=== PATIENT | female | born 1970 | race American Indian/Alaskan Native ===

== ENCOUNTER 2017-06-27 13:48 | Emergency (ER) | payer BC ==
[2017-06-27 13:48] VITALS: BMI 34.2
[2017-06-27 14:20] VITALS: O2SAT 98
[2017-06-27 14:56] LABS: URINE BACTERIA RARE (<OCC); URINE BILIRUBIN NEGATIVE (NEGATIVE); URINE BLOOD NEGATIVE (NEGATIVE); URINE COLOR Colorless (YELLOW); URINE GLUCOSE (UA) NORMAL (Normal); URINE KETONE NEGATIVE (NEGATIVE); URINE LEUKOCYTE ESTERASE NEG Leu/uL (Negative); URINE PROTEIN NEGATIVE (NEGATIVE); URINE UROBILINOGEN NORMAL mg/dL (0.2-1.0)
--- NOTE | 2017-06-27 15:30 | C.PDOC ---
History Of Present Illness 46 y/o female with no pmhx, c/o dizziness, lightheadedness, headache, and lower abdominal pain for 3 days. Symptoms self-resolved but returned yesterday. Abdominal pain is 8/10 and "feels like a bottom less pit". Headache is 6/10 and is localized at the left occipital-parietal area. Patient took Tylenol with no relief. Reports blurred vision, nausea, and vomiting. Denies LOC, fever, or chills. No chest pain, SOB, or lower extremity pain or swelling. Time Seen by Provider: 06/27/17 14:36 Chief Complaint (Nursing): Dizziness/Lightheaded History Per: Patient History/Exam Limitations: no limitations Onset/Duration Of Symptoms: Days (3) Current Symptoms Are (Timing): Still Present Severity: Moderate ("Feels like a bottomless pit") Pain Scale Rating Of: 8 Location Of Pain/Discomfort: Other (Lower abdomen) Radiation Of Pain To:: None Quality Of Discomfort: "Pain" Associated Symptoms: Nausea, Vomiting. denies: Fever, Chills Recent travel outside of the [place]: No Additional History Per: Patient Past Medical History Reviewed: Historical Data, Nursing Documentation, Vital Signs Vital Signs: Last Vital Signs Temp 98.2 F 06/27/17 14:07 Pulse 72 06/27/17 14:07 Resp 20 06/27/17 14:07 BP 148/105 H 06/27/17 14:07 Pulse Ox 98 06/27/17 15:41 - Medical History PMH: Anemia Denies: Chronic Kidney Disease - [facility] Procedures EXCISION OF LEFT OVARY, OPEN APPROACH (12/10/15) EXCISION OF UTERUS, OPEN APPROACH (12/10/15) Family History: States: Unknown Family Hx - Social History Hx Tobacco Use: No Hx Alcohol Use: No Hx Substance Use: No - Immunization History Hx Tetanus Toxoid Vaccination: No Hx Influenza Vaccination: No Hx Pneumococcal Vaccination: Yes Review Of Systems Except As Marked, All Systems Reviewed And Found Negative. Constitutional: Negative for: Fever, Chills Eyes: Positive for: Vision Change (Blurred vision) Cardiovascular: Positive for: Light Headedness. Negative for: Chest Pain, Palpitations Respiratory: Negative for: Shortness of Breath Gastrointestinal: Positive for: Nausea, Vomiting, Abdominal Pain Musculoskeletal: Negative for: Leg Pain, Foot Pain Neurological: Positive for: Headache, Dizziness. Negative for: Other (LOC) Physical Exam - Physical Exam Appears: Non-toxic, No Acute Distress Skin: Warm, Dry Head: Atraumatic, Normacephalic Eye(s): bilateral: Normal Inspection, PERRL, EOMI Oral Mucosa: Moist Chest: Symmetrical Cardiovascular: Rhythm Regular, No Murmur Respiratory: Normal Breath Sounds, No Rales, No Rhonchi, No Wheezing Gastrointestinal/Abdominal: Soft, Tenderness (LUQ and bilateral lower abdomen), No Guarding, No Rebound Neurological/Psych: Oriented x3 ED Course And Treatment O2 Sat by Pulse Oximetry: 98 (RA) Pulse Ox Interpretation: Normal Medical Decision Making Medical Decision Making: Plans: * Motrin * Tylenol * IV fluids * UA * Serology Flu negative, feeling better Disposition Counseled Patient/Family Regarding: Need For Followup, Rx Given - Disposition Disposition: HOME/ ROUTINE Disposition Time: 16:30 Condition: STABLE Instructions: Viral Syndrome (ED) Forms: [facility] (Italian), General Discharge Instructions - POA Present On Arrival: None - Clinical Impression Clinical Impression: Viral syndrome - Scribe Statement The provider has reviewed the documentation as recorded by the Scribe Benigno moya All medical record entries made by the Scribe were at my direction and personally dictated by me. I have reviewed the chart and agree that the record accurately reflects my personal performance of the history, physical exam, medical decision making, and the department course for this patient. I have also personally directed, reviewed, and agree with the discharge instructions and disposition.
[2017-06-27 17:38] VITALS: BP 148/95; PULSE 66; RESP 18; TEMP 97.9
== END 2017-06-27 17:56 | disposition home or self-care (01) ==
LOC: C.ER 13:48
DX: B34.9 Viral infection, unspecified (principal)

== ENCOUNTER 2017-11-18 13:46 | Emergency (ER) | payer BC ==
[2017-11-18 13:46] VITALS: BMI 34.2
[2017-11-18] MEDS ORDERED: DiphenhydrAMINE 50 mg/ml Inj IVP STA (14:09)
--- NOTE | 2017-11-18 14:11 | C.PDOC ---
History Of Present Illness 46 yo female, presents with katz. as per pt worsening over last week, "feels different than her typical katz". no fevers, cough, n/v/d, cp, sob, neck pain, blurry vision. Time Seen by Provider: 11/18/17 13:54 Chief Complaint (Nursing): Headache Past Medical History Reviewed: Historical Data, Nursing Documentation, Vital Signs Vital Signs: Last Vital Signs Temp 98.1 F 11/18/17 13:49 Pulse 70 11/18/17 15:43 Resp 18 11/18/17 15:43 BP 132/85 11/18/17 15:43 Pulse Ox 79 L 11/18/17 16:04 - Medical History PMH: Anemia Denies: Chronic Kidney Disease - [facility] Procedures EXCISION OF LEFT OVARY, OPEN APPROACH (12/10/15) EXCISION OF UTERUS, OPEN APPROACH (12/10/15) Family History: States: Unknown Family Hx - Social History Hx Tobacco Use: No Hx Alcohol Use: No Hx Substance Use: No - Immunization History Hx Tetanus Toxoid Vaccination: No Hx Influenza Vaccination: No (not up to date) Hx Pneumococcal Vaccination: Yes Review Of Systems Except As Marked, All Systems Reviewed And Found Negative. Neurological: Positive for: Headache Physical Exam - Physical Exam Appears: Well, No Acute Distress Skin: Normal Color, Warm, Dry Eye(s): bilateral: Normal Inspection, PERRL, EOMI Nose: Normal Throat: Normal Neck: Normal Cardiovascular: Rhythm Regular Respiratory: Normal Breath Sounds Gastrointestinal/Abdominal: Normal Exam Back: Normal Inspection Extremity: Normal ROM Neurological/Psych: Oriented x3, Normal Speech, Normal Cognition, Normal Cranial Nerves, No Cerebellar Signs, Normal Motor, Normal Sensation ED Course And Treatment - Laboratory Results Result Diagrams: 11/18/17 14:40 11/18/17 14:40 O2 Sat by Pulse Oximetry: 79 Medical Decision Making Medical Decision Making: katz ro metabolic, intracranial etiology neck supple no menginmus, neuro intact. no thunderclap features 400: pt reassesed pain improving. labs head ct neg. pt declines futher obs, medication,s tates she wishes to go home. neuro intac.t Disposition - Disposition Referrals: [facility] [Outside] [facility] [Outside] [facility] [Outside] Chris Merino MD [Staff Provider] - Disposition: HOME/ ROUTINE Disposition Time: 16:02 Condition: STABLE Additional Instructions: follow up with specialist. return to er with worsening symptoms or concerns. Prescriptions: Acetaminophen/Butalbital/Caf [Fioricet] 1 tab PO Q8 PRN #10 tab PRN Reason: Headache Instructions: Headache, Adult (DC) Forms: [facility] (Hebrew) - Clinical Impression Clinical Impression: Headache
[2017-11-18] MEDS ORDERED: DiphenhydrAMINE 50 mg/ml Inj ONE (14:19)
[2017-11-18 14:44] LABS: BASO # 0.1 K/uL (0.0-0.2); BASO % 0.8 % (0.0-2.0); EOS # 0.4 K/uL (0.0-0.7); HEMOGLOBIN 12.1 g/dL (11.0-16.0); LYMPH # 1.8 K/uL (1.0-4.3); LYMPH % 29.2 % (20.0-40.0); MEAN CELL VOLUME 84.2 fL (81.0-99.0); MEAN CORPUSCULAR HEMOGLOBIN 28.3 pg (27.0-31.0); MEAN CORPUSCULAR HGB CONC 33.6 g/dL (33.0-37.0); MEAN PLATELET VOLUME 8.2 fL (7.2-11.7); MONO % 15.5 % (0.0-10.0); NEUT # 3.1 K/uL (1.8-7.0); NEUT % 48.5 % (50.0-75.0); NRBC % 0.2 % (0.0-2.0); RBC 4.28 Mil/uL (3.80-5.20); RED CELL DISTRIBUTION WIDTH 14.3 % (11.5-14.5); WHITE BLOOD COUNT 6.3 K/uL (4.8-10.8)
[2017-11-18 14:48] LABS: HCG,QUALITATIVE URINE NEGATIVE (NEGATIVE)
[2017-11-18 14:52] LABS: SQUAMOUS EPITHIAL 3 /hpf (0-5); URINE BACTERIA RARE (<OCC); URINE BILIRUBIN NEGATIVE (NEGATIVE); URINE BLOOD NEGATIVE (NEGATIVE); URINE CLARITY Clear (Clear); URINE COLOR Yellow (YELLOW); URINE GLUCOSE (UA) NORMAL (Normal); URINE LEUKOCYTE ESTERASE NEG Leu/uL (Negative); URINE PROTEIN NEGATIVE (NEGATIVE)
[2017-11-18 14:56] LABS: ALB/GLOB RATIO 0.9 (1.0-2.1); ALBUMIN 3.8 g/dL (3.5-5.0); ALT/SGPT 32 U/L (9-52); AST/SGOT 31 U/L (14-36); BLOOD UREA NITROGEN 11 mg/dL (7-17); CALCIUM 8.6 mg/dl (8.6-10.4); GFR AFRICAN-AMERICAN > 60; GFR NON-AFRICAN AMERICAN 53
[2017-11-18 14:59] LABS: INR 1.1
[2017-11-18 15:44] VITALS: BP 132/85; PULSE 70; RESP 18
--- NOTE | 2017-11-18 16:00 | CT ---
PROCEDURE: CT HEAD WITHOUT CONTRAST. HISTORY: katz COMPARISON: None available. TECHNIQUE: Axial computed tomography images were obtained through the head/brain without intravenous contrast. Radiation dose: Total exam DLP = 715.96 mGy-cm. This CT exam was performed using one or more of the following dose reduction techniques: Automated exposure control, adjustment of the mA and/or kV according to patient size, and/or use of iterative reconstruction technique. FINDINGS: HEMORRHAGE: No intracranial hemorrhage. BRAIN: No mass effect or edema. No atrophy or chronic microvascular ischemic changes. VENTRICLES: Unremarkable. No hydrocephalus. CALVARIUM: Unremarkable. PARANASAL SINUSES: Unremarkable as visualized. No significant inflammatory changes. MASTOID AIR CELLS: Unremarkable as visualized. No inflammatory changes. OTHER FINDINGS: None. IMPRESSION: Normal CT of the Head. No intracranial mass, hemorrhage or evidence of acute in
[2017-11-18 16:04] VITALS: O2SAT 79
[2017-11-18 16:27] VITALS: TEMP 97.8
== END 2017-11-18 16:20 | disposition home or self-care (01) ==
LOC: C.ER 13:46
DX: R51 Headache (principal); D64.9 Anemia, unspecified
CPT/HCPCS: 70450; 80053; 81001; 84703; 85025; 85610; 85730; 96374; 96375; 99285; J1200; J2765